=== PATIENT | male | born 1985 | race Caucasian/White ===

== ENCOUNTER → 2023-11-08 06:47 | Outpatient (REF) | payer OTHER, SELFPAY | LOC: HWRAD 06:47 | PROVIDERS: ATTENDING PHYSICIAN Internal Medicine | DX: R10.11 Right upper quadrant pain (principal) | CPT/HCPCS: 76700 ==

== ENCOUNTER → 2025-04-10 11:07 | Outpatient (REF) | payer OTHER, SELFPAY | LOC: HWRAD 11:07 | PROVIDERS: ATTENDING PHYSICIAN Internal Medicine | DX: N41.0 Acute prostatitis (principal) | CPT/HCPCS: 76770 ==